=== PATIENT | female | born 1985 | race Two or more races ===

== ENCOUNTER 2018-02-19 06:43 | Emergency (ER) | payer BC, OTHER ==
[2018-02-19] MEDS ORDERED: ONDANSETRON 4 MG/2 ML VIAL ONE (07:08)
--- NOTE | 2018-02-19 07:13 | EDPHY ---
H & P Stated Complaint: N/V x 9 days Time Seen by Provider: 02/19/18 07:08 HPI/ROS: CHIEF COMPLAINT: Nausea and vomiting HISTORY OF PRESENT ILLNESS: This is a generally healthy immunocompetent 32-year-old female who presents with 9 days of nausea and vomiting. The nausea is worse in the morning, improved in the afternoon. She has been able to eat and drink a little bit each day. She has had abdominal cramping over the past week, primarily in the upper abdomen. At the beginning of this illness she had loose stools, no diarrhea. Stooling now is minimal and she states that she is not eating very much which she feels explains the decrease in bowel movements. Her last bowel movement was formed. She has not had fever. No dysuria, urgency , or frequency. No back pain. No history of abdominal surgeries. She has an IUD in place. She has been seen by her primary care physician also at [facility]. She was given Zofran at [facility] but discontinued this medication because she resumed her Lexapro and was concerned about an interaction. She resumed the Lexapro because of anxiety. She had discontinued Lexapro last month. She is now taking 5 mg daily and has done so for the past 2 evenings. She had a negative urine test at [facility] within the week. REVIEW OF SYSTEMS: A ten system review of systems was performed and is negative with the exception of the items mentioned in the HPI. Past medical history: Depression, mononucleosis Past surgical history: [place] teeth extraction Family history: Mother with adult onset diabetes Social history: She works in [employer] for a [employer]. She lives with her . She does not use tobacco products, marijuana, illicit drugs, or alcohol. General Appearance: Alert. Vital signs reviewed and normal. Brief episode of dry heaves during my examination. Eyes: Pupils equal and round, no conjunctival injection, no discharge. Anicteric. ENT, Mouth: Mucous membranes are moist, no oropharyngeal erythema or edema. Neck: No lymphadenopathy, supple. Respiratory: Lungs are clear to auscultation; no wheezes, rales, or rhonchi. Cardiovascular: Regular rate and rhythm; no murmur, rub, or gallop. Gastrointestinal: Abdomen is soft with tenderness in the midepigastrium and right upper quadrant, no guarding, no masses or organomegaly, bowel sounds normal. Skin: Warm and dry, no rashes on exposed skin, normal color. Back: Nontender to palpation over the thoracolumbar spine. No CVAT. Extremities: No lower extremity edema, no calf tenderness or swelling. Neurological: Alert and oriented. Moving all four extremities easily and equally. Psychiatric: Normal affect. - Personal History LMP (Females 10-55): IUD In Place Current Tetanus Diphtheria and Acellular Pertussis (TDAP): Yes - Medical/Surgical History Hx Asthma: No Hx Chronic Respiratory Disease: No Hx Diabetes: No Hx Cardiac Disease: No Hx Renal Disease: No Hx Cirrhosis: No Hx Alcoholism: No Hx HIV/AIDS: No Hx Splenectomy or Spleen Trauma: No Other PMH: depression - Social History Smoking Status: Never smoked Constitutional: Initial Vital Signs Temperature (C) 36.5 C 02/19/18 06:47 Heart Rate 74 02/19/18 06:47 Respiratory Rate 20 02/19/18 06:47 Blood Pressure 117/79 02/19/18 06:47 O2 Sat (%) 100 02/19/18 06:47 O2 Delivery Mode Room Air Allergies/Adverse Reactions: Sulfa (Sulfonamide Antibiotics) Allergy (Verified 02/19/18 06:46) Home Medications: Medication Instructions Recorded Escitalopram Oxalate 07/16/14 Ondansetron Odt [Zofran Odt 4 mg 4 mg PO Q4 PRN #6 tab 07/16/14 (RX)] Paraguard Iud 07/16/14 Lexapro 02/19/18 Promethazine HCl [Phenergan 25mg 25 mg PO Q8 PRN #6 tab 02/19/18 (*)] Medical Decision Making ED Course/Re-evaluation: 32-year-old female with persistent nausea vomiting. 1 L IV normal saline, Phenergan (she is on Lexapro and there is a potential for QT prolongation with Zofran), and IV Pepcid given. Blood work sent. 0755: Patient is sleeping. 830: Patient awake, states that she feels better. No vomiting in the ED. Up to bathroom. Abdomen soft and nontender. Labs reviewed. CBC, chemistries, lipase, and liver functions all within normal limits. Urinalysis shows trace leukocyte esterase and trace bacteria. I do not think that this is indicative of urinary tract infection and I do not think that her symptoms represent a UTI or pyelonephritis. She is not . With normal blood work I think pancreatitis and cholecystitis are unlikely. At this time, I do not recommend imaging such as ultrasound to assess her gallbladder. I do not think that a CT scan of the abdomen and pelvis will be helpful. I do not suspect bowel obstruction. Her pain is upper abdominal and I do not think that ovaries or bladder are the source of her pain. She remained without vomiting in the emergency department. She was able to rest and felt better. Her abdomen remains benign on exam. The etiology of her nausea vomiting remains unclear. She is given a prescription for Phenergan to use if needed. I am recommending follow up if she does not improve. She will follow up with her primary care provider. Differential Diagnosis: I considered a differential diagnosis of nausea vomiting including but not limited to , appendicitis, urinary tract infection, cholecystitis, pancreatitis, and gastroenteritis. - Data Points Laboratory Results: Laboratory Results 02/19/18 07:15 02/19/18 07:15 Medications Given: Discontinued Medications Sodium Chloride (Ns) 1,000 mls @ 0 mls/hr IV ONCE ONE; Wide Open PRN Reason: Protocol Stop: 02/19/18 07:31 Last Admin: 02/19/18 07:33 Dose: 1,000 mls Famotidine/Sodium Chloride (Pepcid 20 Mg (Premix)) 50 mls @ 200 mls/hr IV EDNOW ONE Stop: 02/19/18 07:47 Last Admin: 02/19/18 07:40 Dose: 50 mls Promethazine HCl (Phenergan) 12.5 mg IVP EDNOW ONE Stop: 02/19/18 07:28 Last Admin: 02/19/18 07:34 Dose: 12.5 mg Departure - Departure Disposition: Home, Routine, Self-Care Clinical Impression: Vomiting Qualifiers: Vomiting type: unspecified Vomiting Intractability: non-intractable Nausea presence: with nausea Qualified Code(s): R11.2 - Nausea with vomiting, unspecified Condition: Good Instructions: Acute Nausea and Vomiting (ED) Additional Instructions: If you are not getting better you should be re-evaluated by Adilia Tavarez. Use the Phenergan as needed for nausea and vomiting. If you are worse in any way--fever, persistent abdominal pain, persistent nausea and inability to eat or drink--you should be re-evaluated. Rest today, try bland foods only. Referrals: Adilia Geronimo PA [Physician [facility]] - As per Instructions Prescriptions: Promethazine HCl [Phenergan 25mg (*)] 25 mg PO Q8 PRN #6 tab PRN Reason: nausea
[2018-02-19] MEDS ORDERED: PROMETHAZINE HCL 25 MG/ML INJ IVP ONE (07:27)
[2018-02-19] MEDS ORDERED: NS 1,000 ML IV ONE (07:30)
[2018-02-19 07:33] LABS: PLATELET COUNT 363 10^3/uL (150-400)
[2018-02-19] MEDS ORDERED: FAMOTIDINE 20 MG/NACL 50 ML IV ONE (07:33)
[2018-02-19 11:43] VITALS: BP 109/75
== END 2018-02-19 11:43 | disposition home or self-care (01) ==
DX: R11.2 Nausea with vomiting, unspecified (principal); E86.9 Volume depletion, unspecified
CPT/HCPCS: 96374; J2405; J2550

== ENCOUNTER → 2018-02-24 | Outpatient (CLI) | payer BC | LOC: FIMAGING 09:34 | PROVIDERS: ATTEND Physician Assistant | DX: R10.10 Upper abdominal pain, unspecified (principal); R11.2 Nausea with vomiting, unspecified ==

== ENCOUNTER → 2018-07-29 | Outpatient (CLI) | payer BC | LOC: FIMAGING 08:59 ==